=== PATIENT | female | born 1955 | race Caucasian/White ===

== ENCOUNTER → 2020-07-12 | Outpatient (CLI) | payer OTHER ==
[~2020-07-12] MED LIST: ALEVE220 MG PO; CENTANY30 GM TP; LISINOPRIL-HCT1 EAC1 PO; MYCOSTATIN100000 UTS PO; OMEPRAZOLE40 MG PO; PERCOCET 10-321 EACH PO; SYMBICORT 16010.2 GM INH; UNISOM SLEEP AI25 MG PO; VENTOLIN HFA 66.7 GM INH
== END ==
LOC: KOH-I 13:45
DX: Z12.2 Encounter for screening for malignant neoplasm of respiratory organs (principal); Z87.891 Personal history of nicotine dependence; J43.9 Emphysema, unspecified
CPT/HCPCS: 71271

== ENCOUNTER → 2020-12-10 | Day surgery (SDC) | payer OTHER ==
[~2020-12-10] MED LIST changes: +PROTONIX40 MG PO; +VITAMIN D 40400 UNIT PO
== END | disposition home or self-care (01) ==
LOC: OR 06:31
DX: K29.50 Unspecified chronic gastritis without bleeding (principal); K74.60 Unspecified cirrhosis of liver; I85.10 Secondary esophageal varices without bleeding; K76.6 Portal hypertension; K31.89 Other diseases of stomach and duodenum; K80.20 Calculus of gallbladder without cholecystitis without obstruction; K44.9 Diaphragmatic hernia without obstruction or gangrene; I10 Essential (primary) hypertension; J44.9 Chronic obstructive pulmonary disease, unspecified; M81.0 Age-related osteoporosis without current pathological fracture; K21.9 Gastro-esophageal reflux disease without esophagitis; B18.2 Chronic viral hepatitis C; Z87.891 Personal history of nicotine dependence; Z88.5 Allergy status to narcotic agent; Z79.899 Other long term (current) drug therapy
CPT/HCPCS: J2704; J7040

== ENCOUNTER → 2021-01-07 | Outpatient (CLI) | payer OTHER | LOC: CT 07:14 | DX: R00.2 Palpitations (principal); R60.0 Localized edema; I11.0 Hypertensive heart disease with heart failure; I50.9 Heart failure, unspecified; R07.9 Chest pain, unspecified; R06.02 Shortness of breath; E78.49 Other hyperlipidemia; I48.0 Paroxysmal atrial fibrillation; I25.5 Ischemic cardiomyopathy; R41.3 Other amnesia; R90.82 White matter disease, unspecified | CPT/HCPCS: 36415; 70470; 82565; Q9967 ==

== ENCOUNTER → 2021-02-18 | Outpatient (CLI) | payer OTHER | LOC: EXRD 09:08 | DX: K74.60 Unspecified cirrhosis of liver (principal); K80.20 Calculus of gallbladder without cholecystitis without obstruction | CPT/HCPCS: 76705 ==

== ENCOUNTER → 2021-03-19 | Outpatient (CLI) | payer OTHER | LOC: HEART 5 14:57 | DX: J44.9 Chronic obstructive pulmonary disease, unspecified (principal); R05.9 Cough, unspecified; H57.9 Unspecified disorder of eye and adnexa; J30.9 Allergic rhinitis, unspecified; Z14.8 Genetic carrier of other disease; F41.9 Anxiety disorder, unspecified; M19.90 Unspecified osteoarthritis, unspecified site; H26.9 Unspecified cataract | CPT/HCPCS: 94060; 94729 ==

== ENCOUNTER → 2021-11-19 | Day surgery (SDC) | payer OTHER ==
[~2021-11-19] MED LIST changes: +ACTIGALL 300MG300 MG PO; +LACTULOSE10 GM/151 PO; +TRAZODONE HCL100 MG PO
== END | disposition home or self-care (01) ==
LOC: OR 07:06
DX: K74.60 Unspecified cirrhosis of liver (principal); I85.10 Secondary esophageal varices without bleeding; K29.50 Unspecified chronic gastritis without bleeding; K76.6 Portal hypertension; K31.89 Other diseases of stomach and duodenum; K44.9 Diaphragmatic hernia without obstruction or gangrene; K80.20 Calculus of gallbladder without cholecystitis without obstruction; K59.09 Other constipation; I10 Essential (primary) hypertension; J44.9 Chronic obstructive pulmonary disease, unspecified; M81.0 Age-related osteoporosis without current pathological fracture; Z88.5 Allergy status to narcotic agent; Z87.891 Personal history of nicotine dependence; Z79.899 Other long term (current) drug therapy
CPT/HCPCS: J2704; J7040

== ENCOUNTER → 2021-11-26 | Outpatient (CLI) | payer OTHER | LOC: MAMO 14:30 | DX: Z12.31 Encounter for screening mammogram for malignant neoplasm of breast (principal) | CPT/HCPCS: 77063; 77067 ==

== ENCOUNTER 2022-01-08 20:18 | Emergency (ER) | payer OTHER ==
[2022-01-08 22:39] LABS: HEMOGLOBIN 15.1 gm/dl (12.3-15.3); RED BLOOD COUNT 4.54 M/UL (4.00-5.10); WHITE BLOOD COUNT 6.6 K/UL (4.5-11.0)
[2022-01-08 22:56] LABS: BUN/CREATININE RATIO 11 (0-10)
[2022-01-09] MEDS ORDERED: BENTYL 20MG TAB20 MG PO (04:38)
[2022-01-09] MEDS ORDERED: ZOFRAN ODT 4 MG4 MG PO (04:38)
== END 2022-01-10 06:36 | disposition home or self-care (01) ==
LOC: ER1 20:18
PROVIDERS: Physician Assistant
DX: U07.1 COVID-19 (principal); R10.9 Unspecified abdominal pain; R10.811 Right upper quadrant abdominal tenderness; Z90.49 Acquired absence of other specified parts of digestive tract; Z88.5 Allergy status to narcotic agent
CPT/HCPCS: 80053; 81001; 82550; 82553; 83690; 84484; 85025; 87086; 96374; 96375; 99284; J1885; J2405; Q9967; U0002